=== PATIENT | female | born 1990 | race Caucasian/White ===

== ENCOUNTER 2019-03-04 09:00 | Inpatient (IN) ==
[2019-03-04] MEDS ORDERED: FAMOTIDINE 20 MG/2 ML VIAL IV ONE (09:12)
[2019-03-04] MEDS ORDERED: ceFAZolin 3,000 MG in SYRINGE 1 EACH IV ONE (09:12)
[2019-03-04] MEDS ORDERED: CITRIC ACID/SODIUM CITRATE 30 ML UDCUP PO ONE (09:12)
[2019-03-04] MEDS ORDERED: OXYTOCIN/LR 20 UNIT/1,000 ML BAG IV ONE (09:16)
[2019-03-04] MEDS ORDERED: LACTATED RINGERS 1,000 ML IV SCH (09:30)
[2019-03-04 09:34] LABS: Basophils % 0.3 % (0.0-0.8); Eosinophils # 0.2 10*3/uL (0.0-0.87); Eosinophils % 1.4 % (0.00-10.9); Hematocrit 38.6 VOL% (35.7-47.0); Hemoglobin 12.7 GM/DL (12.0-16.0); Immature Granulocytes % 0.9 %; Immature Granulocytes Absolute 0.11 #; Lymphocytes # 2.1 10*3/uL (1.4-4.0); Lymphocytes % 16.9 % (21.3-54.2); Mean Corpuscular HGB Conc 32.9 GM/DL (32-36); Mean Corpuscular Volume 88.3 FL (87-102); Mean Platelet Volume 10.2 FL (9.6-12.0); Monocytes % 5.4 % (1.7-12.7); Neutrophils % 75.1 % (38.7-73.9); Platelet Count 304 T/CUMM (130-400); Red Blood Count 4.37 MC/CUMM (3.8-5.5); Red Cell Distribution Width 14.1 % (9.3-17.3); White Blood Count 12.2 T/CUMM (4-12)
[2019-03-04 09:55] LABS: Albumin 2.6 G/DL (3.4-5.0); Bilirubin,Total 0.4 MG/DL (0.2-1.0); Calcium 8.9 MG/DL (8.5-10.1); Osmolality,Calculated 271.7 MOS/KG (273-304); Total Protein 6.9 G/DL (6.4-8.3)
[2019-03-04] MEDS ORDERED: PHENYLEPHRINE 1 MG/10 ML SYRINGE IV ONE (12:14)
[2019-03-04] MEDS ORDERED: BUPIVACAINE SPINAL 0.75% 2 ML AMP SPINAL ONE (12:15)
[2019-03-04] MEDS ORDERED: DEXAMETHASONE 4 MG/1 ML VIAL ONE (12:15)
[2019-03-04] MEDS ORDERED: KETOROLAC 60 MG/2 ML VIAL IM ONE (12:15)
[2019-03-04] MEDS ORDERED: EPINEPHrine 1 MG/ML VIAL ONE (12:15)
[2019-03-04] MEDS ORDERED: BUPIVACAINE 0.5% 50 ML VIAL ONE (12:15)
[2019-03-04] MEDS ORDERED: ONDANSETRON 4 MG/2 ML VIAL ONE (12:15)
[2019-03-04] MEDS ORDERED: MORPHINE 10 MG/10 ML VIAL ONE (12:16)
[2019-03-04] MEDS ORDERED: fentaNYL 100 MCG/2 ML VIAL ONE (12:16)
[2019-03-04 13:26] LABS: Apearance,Urine CLEAR (Clear); Bilirubin,Urine Negative (Negative); Blood, Urine Negative (Negative); Glucose,Urine (UA) Negative (Negative); Ketones,Urine 20 mg/dL (Negative); Mucus,Urine Few /LPF (Occasional); Nitrite,Urine Negative (Negative); Protein,Urine Negative; Squamous Epithelial Cell,Urine Occasional /HPF (0-10); Transitional Epi Cells,Urine Occasional /HPF (<1); Urine Color Yellow (Yellow); Urine Specific Gravity 1.018 (1.001-1.035); Urine Urobilinogen < 2.0 EU/DL (0.2-1.0); WBC,Urine 1 /HPF (0-6)
[2019-03-04] MEDS ORDERED: ONDANSETRON 4 MG/2 ML VIAL IV PRN (14:09)
[2019-03-04] MEDS ORDERED: diphenhydrAMINE 50 MG/1 ML VIAL IV PRN (14:09)
[2019-03-04] MEDS ORDERED: hydrOXYzine HCL 25 MG/1 ML VIAL IM PRN (14:09)
[2019-03-04] MEDS ORDERED: HYDROmorphone 2 MG/1 ML VIAL IV PRN (14:09)
[2019-03-04] MEDS: KETOROLAC 30 MG/1 ML VIAL IV SCH (20:10)
[2019-03-04] MEDS: LACTATED RINGERS 1,000 ML IV SCH ×2 (21:05→21:33)
[2019-03-05] MEDS: KETOROLAC 30 MG/1 ML VIAL IV SCH ×2 (02:46→08:25)
[2019-03-05 05:26] LABS: Basophils % 0.2 % (0.0-0.8); Eosinophils % 0.1 % (0.00-10.9); Hematocrit 32.1 VOL% (35.7-47.0); Immature Granulocytes % 0.6 %; Lymphocytes % 12.1 % (21.3-54.2); Mean Corpuscular HGB Conc 32.4 GM/DL (32-36); Mean Corpuscular Volume 89.9 FL (87-102); Mean Platelet Volume 11.1 FL (9.6-12.0); Monocytes % 7.6 % (1.7-12.7); Neutrophils % 79.4 % (38.7-73.9); Platelet Count 268 T/CUMM (130-400); Red Blood Count 3.57 MC/CUMM (3.8-5.5); Red Cell Distribution Width 13.8 % (9.3-17.3)
[2019-03-05 05:35] LABS: Hemoglobin 10.4 GM/DL (12.0-16.0); White Blood Count 16.2 T/CUMM (4-12)
[2019-03-05] MEDS: IBUPROFEN 800 MG TABLET PO PRN ×3 (09:08→22:59)
[2019-03-05] MEDS: MAGNESIUM HYDROXIDE SUSP 30 ML UDCUP PO PRN ×2 (09:08→22:54)
[2019-03-05] MEDS: DOCUSATE SODIUM 100 MG CAPSULE PO SCH ×2 (09:08→22:54)
[2019-03-06 07:39] VITALS: BP 93/69
[2019-03-06] MEDS: IBUPROFEN 800 MG TABLET PO PRN (08:35)
[2019-03-06] MEDS: DOCUSATE SODIUM 100 MG CAPSULE PO SCH (08:35)
[2019-03-06] MEDS: MAGNESIUM HYDROXIDE SUSP 30 ML UDCUP PO PRN (08:35)
[2019-03-06] MEDS ORDERED: DIPH/TET/ACEL PERT BOOSTER VACCINE 0.5 ML VIAL IM ONE (10:47)
== END 2019-03-06 13:30 | disposition home or self-care (01) | DRG 540 ==
LOC: N.LD 09:03 → N.OB 16:07
PROVIDERS: ADMIT Obstetrics & Gynecology; ATTEND Obstetrics & Gynecology